=== PATIENT | female | born 1960 | race Hispanic/Latino ===

== ENCOUNTER 2017-06-13 11:46 | Emergency (ER) | payer BC ==
[2017-06-13] MEDS ORDERED: Sodium Chloride 0.9% 1,000 ML IV STA (12:20)
[2017-06-13 12:46] LABS: BASO # 0.1 K/uL (0.0-0.2); BASO % 0.8 % (0.0-2.0); EOS # 1.2 K/uL (0.0-0.7); EOS % 11.5 % (0.0-4.0); HEMATOCRIT 40.5 % (34.0-47.0); LYMPH # 2.4 K/uL (1.0-4.3); LYMPH % 23.8 % (20.0-40.0); MEAN CELL VOLUME 87.6 fl (81.0-99.0); MEAN CORPUSCULAR HEMOGLOBIN 28.8 pg (27.0-31.0); MEAN CORPUSCULAR HGB CONC 32.8 g/dL (33.0-37.0); MEAN PLATELET VOLUME 9.9 fl (7.2-11.7); MONO # 0.8 K/uL (0.0-0.8); MONO % 7.5 % (0.0-10.0); NEUT # 5.7 K/uL (1.8-7.0); NEUT % 56.4 % (50.0-75.0); NRBC % 0.2 % (0.0-0.0); RED CELL DISTRIBUTION WIDTH 13.6 % (11.5-14.5); WHITE BLOOD COUNT 10.1 K/uL (4.8-10.8)
[2017-06-13 13:15] LABS: ALKALINE PHOSPHATASE 77 U/L (38-126); ALT/SGPT 27 U/L (9-52); AST/SGOT 16 U/L (14-36); BILIRUBIN,TOTAL 0.4 mg/dl (0.2-1.3); BLOOD UREA NITROGEN 13 mg/dl (7-17); CALCIUM 9.3 mg/dL (8.4-10.2); CARBON DIOXIDE 25 mmol/L (22-30); CHLORIDE 107 mmol/L (98-107); GFR AFRICAN-AMERICAN > 60; GLUCOSE,RANDOM 92 mg/dL (65-105); POTASSIUM 3.9 MMOL/L (3.6-5.0); SODIUM 143 mmol/l (132-148)
--- NOTE | 2017-06-13 13:21 | ED PDOC ---
HPI: Allergic Reaction Time Seen by Provider: 06/13/17 12:17 Chief Complaint (Nursing): Allergic Reaction Chief Complaint (Provider): Allergic Reaction History Per: Patient History/Exam Limitations: no limitations Onset/Duration Of Symptoms: Hrs Current Symptoms Are (Timing): Still Present Possible Cause: Other Associated Symptoms: Swelling, Redness Home/EMS Treatment: Benadryl Additional Complaint(s): Pratima Esteban, a 57 year old female, with a prior medical history of skin allergies presents to the ED this morning with scalp itching and facial swelling after using a anika hair dye on Saturday. The patient reports that her scalp became reddened and itchy yesterday. She reports that this morning her face started to swell mostly around her face and cheeks. She states that she took 2 benadryl around 915am this morning. Denies difficulty swallowing, shortness of breath or sensation of the throat closing. PMD: FAMILY PROVIDER,NO Past Medical History Reviewed: Historical Data, Nursing Documentation, Vital Signs Vital Signs: Last Vital Signs Temp 97 F L 06/13/17 11:49 Pulse 81 06/13/17 11:49 Resp 16 06/13/17 11:49 BP 159/84 H 06/13/17 11:49 Pulse Ox 98 06/13/17 11:49 - Medical History PMH: No Chronic Diseases Other PMH: Skin allergies - Surgical History Surgical History: Hernia Repair Other surgeries: foot surgery as a child - Family History Family History: States: Unknown Family Hx - Social History Current smoker - smoking cessation education provided: No Ex-Smoker (has not smoked in the last 12 months): No Alcohol: None Drugs: Denies - Immunization History Hx Tetanus Toxoid Vaccination: No Hx Influenza Vaccination: No Hx Pneumococcal Vaccination: No - Home Medications Home Medications: Ambulatory Orders Medication Instructions Recorded DiphenhydrAMINE [Benadryl] 25 mg PO Q6 PRN #10 cap 06/13/17 Prednisone 50 mg PO DAILY #4 tab 06/13/17 - Allergies Allergies/Adverse Reactions: Allergies Allergy/AdvReac Type Severity Reaction Status Date / Time No Known Allergies Allergy Verified 03/14/16 11:53 Review of Systems ROS Statement: Except As Marked, All Systems Reviewed And Found Negative Constitutional: Positive for: Other (facial swelling around eyes and cheeks; scalp itching) Physical Exam - Reviewed Nursing Documentation Reviewed: Yes Vital Signs Reviewed: Yes - Physical Exam Appears: Positive for: Non-toxic (Obese), No Acute Distress Head Exam: Positive for: ATRAUMATIC, NORMAL INSPECTION, NORMOCEPHALIC Skin: Positive for: Normal Color (bilateral facial edema left greater than the right; Obese; reddened and irritated scalp), Warm, Dry. Negative for: Rash Eye Exam: Positive for: EOMI, PERRL. Negative for: Nystagmus ENT: Positive for: Normal ENT Inspection (oropharynx patent no tongue or lip swelling ). Negative for: Pharyngeal Erythema, Tonsillar Swelling Neck: Positive for: Normal, Painless ROM, Supple Cardiovascular/Chest: Positive for: Regular Rate, Rhythm, Chest Non Tender. Negative for: Tachycardia Respiratory: Positive for: Normal Breath Sounds. Negative for: Stridor, Wheezing, Respiratory Distress Gastrointestinal/Abdominal: Positive for: Normal Exam, Bowel Sounds, Soft. Negative for: Tenderness, Guarding, Rebound Back: Positive for: Normal Inspection. Negative for: L CVA Tenderness, R CVA Tenderness Extremity: Positive for: Normal ROM. Negative for: Tenderness, Deformity, Swelling Lymphatic: Positive for: Normal Exam Neurologic/Psych: Positive for: Alert, Oriented, Gait - Laboratory Results Result Diagrams: 06/13/17 12:41 06/13/17 12:41 - ECG O2 Sat by Pulse Oximetry: 98 (RA) Pulse Ox Interpretation: Normal - Progress ED Course And Treament: 1217 Initial Impression 57 y/o female presenting with localized but progressing contact dermatitis Initiate solumedrol, fluids, pepsid and check basic labs Initial Plan: * CMP * CBC * NS 1000 ml IV 1000 mls/hr * Pepcid 20mg IV * SOLUmedrol 125mg IVP * Revaluation * On re-eval feeling somewhat better, facial edema had improved mildly and she continued to have no Respiratory symptoms DC from ED to [facility] as oupt/ Scribe Attestation Documented by Abby Leija acting as a scribe for Duane Nguyen MD. Provider Attestation All medical record entries made by the Scribe were at my direction and personally dictated by me. I have reviewed the chart and agree that the record accurately reflects my personal performance of the history, physical exam, medical decision making, and the department course for this patient. I have also personally directed, reviewed, and agree with the discharge instructions and disposition. Disposition - Clinical Impression Clinical Impression: Acute allergic reaction - Patient ED Disposition Is Patient to be Admitted: No Counseled Patient/Family Regarding: Studies Performed, Diagnosis, Rx Given - Disposition Referrals: Cal Galvan MD [Staff Provider] - Seman,Margo Rosado MD [Staff Provider] - Disposition: Routine/Home Disposition Time: 14:45 Condition: STABLE Additional Instructions: See PMD and/or transcriber in 2-3 days for followup and further testing. Prescriptions: DiphenhydrAMINE [Benadryl] 25 mg PO Q6 PRN #10 cap PRN Reason: Allergy Symptoms Prednisone 50 mg PO DAILY #4 tab Instructions: Contact Dermatitis (ED), General Allergic Reaction (ED) Forms: [employer] (Croatian)
[2017-06-13] MEDS ORDERED: DiphenhydrAMINE 50 mg/ml Inj IV STA (15:09)
[2017-06-13 18:54] VITALS: BP 133/78; PULSE 78; RESP 18; TEMP 98
[2017-06-15 08:20] VITALS: O2SAT 98
== END 2017-06-13 15:20 | disposition home or self-care (01) ==
LOC: H.ER 11:46
DX: L25.9 Unspecified contact dermatitis, unspecified cause (principal); Z87.891 Personal history of nicotine dependence
CPT/HCPCS: 80053; 85025; 96374; 99282; J2930; J7040